=== PATIENT | male | born 1985 | race Caucasian/White ===

== ENCOUNTER 2019-11-08 15:29 | Emergency (ER) | payer OTHER ==
[~2019-11-08] VITALS: Ht 188 cm; Wt 81.7 kg
[2019-11-08 15:49] LABS: ABSOLUTE BASOPHILS 0.1 thou/uL (0.0-0.2); ABSOLUTE LYMPHOCYTES 1.3 thou/uL (0.8-5.3); ABSOLUTE MONOCYTES 0.5 thou/uL (0.0-1.2); ABSOLUTE NEUTROPHILS 3.1 thou/uL (1.6-8.1); BASOPHILS 1.4 %; EOSINOPHILS 0.7 %; HEMOGLOBIN 14.1 gm/dL (14.0-18.0); LYMPHOCYTES 26.7 %; MCH 31.3 pg (26.0-34.0); MCHC 34.3 g/dL (28.0-37.0); MCV 91.2 fL (80.0-100.0); MONOCYTES 10.2 %; MPV 8.9 fl. (7.2-11.1); NUCLEATED RBCS 0 /100WBC; PLATELET COUNT* 126 thou/uL (150-400); RDW-CV 14.8 % (10.5-14.5)
[2019-11-08 15:55] LABS: CALCIUM 8.9 mg/dL (8.5-10.1); CREATININE 1.1 mg/dL (0.6-1.3); POTASSIUM 3.4 mmol/L (3.5-5.1)
[2019-11-08 15:59] LABS: ALBUMIN 4.7 g/dL (3.4-5.0); TOTAL PROTEIN 7.9 g/dL (6.4-8.2)
--- NOTE | 2019-11-08 16:39 | EKG ---
[place] [address] ELECTROCARDIOGRAM REPORT Name: OVIDIO WILDER Room: [facility].#: [id number] Admission: Attend Phys: Discharge: Date of : 83 Date of Service: 11/08/19 1535 Report #: [id number] THIS REPORT FOR: //name// 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
[2019-11-08] MEDS ORDERED: NEURONTIN 400M400 M2 PO (17:12)
[2019-11-08] MEDS ORDERED: ZOFRAN ODT4 MG DISSOLVE (17:12)
[2019-11-08 17:58] VITALS: BP 132/82
== END 2019-11-08 18:00 | disposition left against medical advice (07) ==
LOC: M.ERS 15:29
PROVIDERS: Emergency Medicine Emergency Medical Services
DX: F10.239 Alcohol dependence with withdrawal, unspecified (principal); F17.210 Nicotine dependence, cigarettes, uncomplicated; Z90.49 Acquired absence of other specified parts of digestive tract; Y90.0 Blood alcohol level of less than 20 mg/100 ml

== ENCOUNTER 2021-01-21 19:19 | Inpatient (IN) | payer OTHER ==
[~2021-01-21] VITALS: Ht 188 cm; Wt 81.6 kg
[~2021-01-21 19:19] MED LIST: NEURONTIN 400M400 M2 PO; ZOFRAN ODT4 MG DISSOLVE
[2021-01-21 19:24] VITALS: BP 127/98
[2021-01-21] MEDS ORDERED: FLUOXETINE DR90 MG (19:28)
--- NOTE | 2021-01-21 20:24 | NUR ---
PT NOTED NEW NUMBNESS STARTING AT 2023. SIMILAR TO STEPHAN MICHEL.
[2021-01-21 20:45] LABS: ABSOLUTE BASOPHILS 0.1 thou/uL (0.0-0.2); ABSOLUTE EOSINOPHILS 0.1 thou/uL (0.0-0.7); ABSOLUTE LYMPHOCYTES 2.6 thou/uL (0.8-5.3); ABSOLUTE MONOCYTES 0.5 thou/uL (0.0-1.2); ABSOLUTE NEUTROPHILS 3.7 thou/uL (1.6-8.1); BASOPHILS 1.3 %; EOSINOPHILS 1.2 %; HEMATOCRIT 44.7 % (42.0-52.0); HEMOGLOBIN 15.5 gm/dL (14.0-18.0); LYMPHOCYTES 37.2 %; MCH 29.5 pg (26.0-34.0); MCHC 34.7 g/dL (28.0-37.0); MCV 85.2 fL (80.0-100.0); MONOCYTES 6.9 %; MPV 7.8 fl. (7.2-11.1); NUCLEATED RBCS 0 /100WBC; PLATELET COUNT* 344 thou/uL (150-400); POLYS 53.4 %; RBC 5.25 mil/uL (4.50-6.00); RDW-CV 13.2 % (10.5-14.5); WBC 6.9 thou/uL (4.0-11.0)
[2021-01-21 21:02] LABS: CALCIUM 8.3 mg/dL (8.5-10.1); CREATININE 1.1 mg/dL (0.6-1.3); POTASSIUM 4.3 mmol/L (3.5-5.1)
[2021-01-21 21:06] LABS: ALBUMIN 4.7 g/dL (3.4-5.0); MAGNESIUM 2.5 mg/dL (1.8-2.4); TOTAL BILIRUBIN 0.4 mg/dL (<0.1-1.0); TOTAL PROTEIN 8.5 g/dL (6.4-8.2)
[2021-01-21 21:22] LABS: ALCOHOL 342 mg/dL (<10); SALICYLATE < 2.8 mg/dL (2.8-20.0)
[2021-01-21 21:23] LABS: ACETAMINOPHEN < 2 ug/mL (10-30)
[2021-01-21 23:30] VITALS: BP 126/87
[2021-01-22 04:32] VITALS: BP 106/71
[2021-01-22 08:32] VITALS: BP 106/75
[2021-01-22 12:32] VITALS: BP 114/85
--- NOTE | 2021-01-22 16:16 | NUR ---
Met with patient at [facility] and introduced role of CM. Patient admitted for ETOH intoxication/dependence. Patient currently lives alone in the [facility] ([facility]). Patient has been living there x1 week prior to admission. Prior to staying in the [facility] the patient was living in [facility] ([facility] Patient lived there x 9 months. Patient would like to return to [facility] however the financial services manager of [facility] (Abdiaziz: [phone]) stated that patient cannot come back until he goes to rehab for drug and ETOH tx. Once tx is complete, then patient can return to [facility]. Per Abdiaziz, he has reached out to [facility] to see about availability. CM Dir to reach out to [facility] as well since patient is agreeable to tx at this time. Prior to admission, patient was independent with Ad[employer]. Patient currently works at [employer] ([employer]). Patient was driving prior to admission. No hx of DME, O2, bipap/cpap, dialysis, infusion therapy, HH or SNF/rehab. No PCP. Per Abdiaziz, if patient returns to [facility] he will start drinking again. He stated that patient relapsed 1 week ago. CM to continue to follow
[2021-01-22 16:32] VITALS: BP 132/96
[2021-01-22 18:24] VITALS: BP 132/96
[2021-01-22 19:45] VITALS: BP 128/81
--- NOTE | 2021-01-22 20:00 | NUR ---
Pt arrived to floor around 1830. Pt A&O x4. Pt settled into room, heart monitor attached, and seizure precautions put in place. Pt asked for food that was not a clear liquid and was given a box lunch. IV fluids restarted. Pt denies any pain or nausea/vomiting. Bed in low position, bed alarm on, call light within reach.
[2021-01-23] VITALS: BP 119/78
[2021-01-23 04:00] VITALS: BP 116/87
--- NOTE | 2021-01-23 04:53 | NUR ---
ASSUMED PT CARE AT APPROX. 1930. PT IS A/OX4. VSS. PT IS TRACING SR ON MASTER OCEAN. PT C/O "NAUSEA, HEADACHE, SHAKINESS, ANXIOUS, SWEATING, AND TINGLING FEELING." CIWA SCORE 12 AT THIS TIME. SEIZURE PRECAUTIONS IN PLACE. MEDICATIONS ADMINISTERED PRESCRIBED. SEE EMAR. CIWA SCORES TRENDED DOWN DURING THE NOC. SEE DOCUMENTATION. PT ATE BOX LUNCH AND OTHER SNACKS DURING THE NOC. HOURLY ROUNDS COMPLETE CHARTED. ASSESSMENTS COMPLETED. FALL PRECAUTIONS IN PLACE FOR SAFETY. CALL LIGHT WITHIN REACH. WILL CONT. TO MONITOR.
[2021-01-23 08:00] VITALS: BP 127/91
[2021-01-23 10:43] LABS: CALCIUM 7.9 mg/dL (8.5-10.1); CREATININE 1.1 mg/dL (0.6-1.3); POTASSIUM 3.7 mmol/L (3.5-5.1)
[2021-01-23 12:00] VITALS: BP 118/81
--- NOTE | 2021-01-23 13:07 | NUR ---
CM provided Pt with the contact info for Kelly at [facility] regarding inpt ETOH treatment post dc from this hospitalization [phone]. Pt m/s status. Anticipate dc tomorrow.
--- NOTE | 2021-01-23 15:22 | EKG ---
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: : 1985 Requested By: Alina Martin Order Number: [id number] MD: Lennox Srivastava Measurements Intervals [place] Rate: 107 P: 47 SD: 155 QRS: 58 QRSD: 103 T: 51 QT: 345 QTc: 461 Interpretive Statements Sinus tachycardia Baseline wander in lead(s) II,III,aVF Compared to ECG 11/08/2019 15:35:22 No significant changes Electronically Signed On 01-23-2021 15:21:57 CDT by Lennox Srivastava [email or web address] <ELECTRONICALLY SIGNED> By: Lennox Srivastava MD, [facility] 01/23/21 1521 26 26 Lennox Srivastava MD, [facility] /EPI
[2021-01-23] MEDS ORDERED: NEURONTIN300 MG PO (17:21)
[2021-01-23] MEDS ORDERED: REVIA 50 MG TAB50 MG PO (17:21)
[2021-01-23 17:49] VITALS: BP 118/81
[2021-01-23 19:43] VITALS: BP 118/81
--- NOTE | 2021-01-24 10:10 | NUR ---
Patient discharged yesterday due to patient wanting to leave and not have any further tx. Kelly from [facility] will reach out to the patient today for follow up. Patient was not able to make contact with [facility] prior to discharge.
== END 2021-01-23 18:45 | disposition home or self-care (01) | DRG 442 ==
LOC: M.ERS 19:19 → M.TBA-ER 22:07 → M.ERS 22:07 → M.TBA-ER 23:18 → M.2W 01-22 18:32
PROVIDERS: Emergency Medicine; Internal Medicine; ADMIT Internal Medicine; ATTEND Internal Medicine
DX: B17.9 Acute viral hepatitis, unspecified (principal); F10.239 Alcohol dependence with withdrawal, unspecified; F17.210 Nicotine dependence, cigarettes, uncomplicated; F10.229 Alcohol dependence with intoxication, unspecified; Y90.9 Presence of alcohol in blood, level not specified; R73.9 Hyperglycemia, unspecified; Z20.822 Contact with and (suspected) exposure to COVID-19; Z90.49 Acquired absence of other specified parts of digestive tract; Z79.899 Other long term (current) drug therapy